=== PATIENT | female | born 1975 | race Caucasian/White ===

== ENCOUNTER → 2019-01-09 | Outpatient (CLI) | payer BC ==
[~2019-01-09] MED LIST: LEVO75TA PO; OMEG-76 PO; vitamin d PO
[2019-01-09 20:13] LABS: BASOPHILS # (AUTO) 0.03 x10^3/uL (0-0.1); BASOPHILS % (AUTO) 1 % (0-1); EOSINOPHILS # (AUTO) 0.24 x10^3/uL (0-0.4); EOSINOPHILS % (AUTO) 4 % (1-7); LYMPHOCYTES # (AUTO) 1.76 x10^3/uL (1-3.4); LYMPHOCYTES % (AUTO) 28 % (22-44); MD NO; MEAN CORPUSCULAR HEMOGLOBIN 30.1 pg (27.0-34.8); MEAN CORPUSCULAR HGB CONC 33.8 g/dL (32.4-35.8); MEAN CORPUSCULAR VOLUME 89.1 fL (80-100); MEAN PLATELET VOLUME 8.1 fL (7.4-10.4); MONOCYTES # (AUTO) 0.41 x10^3/uL (0.2-0.8); MONOCYTES % (AUTO) 6 % (2-9); NEUTROPHILS # (AUTO) 3.91 x10^3/uL (1.8-6.8); NEUTROPHILS % (AUTO) 62 % (42-75); PLATELET COUNT 334 x10^3/uL (130-400); RED BLOOD COUNT 4.88 x10^6/uL (3.82-5.3); RED CELL DISTRIBUTION WIDTH 13.5 % (9.6-15.2)
== END | disposition home or self-care (01) ==
LOC: STAR 10:54
PROVIDERS: ATTEND Obstetrics & Gynecology Female Pelvic Medicine and Reconstructive Surgery
DX: D25.9 Leiomyoma of uterus, unspecified (principal); N93.9 Abnormal uterine and vaginal bleeding, unspecified; N92.0 Excessive and frequent menstruation with regular cycle
CPT/HCPCS: 36415; 84703; 85025

== ENCOUNTER 2019-01-19 09:34 | Day surgery (SDC) | payer BC ==
[~2019-01-19] VITALS: Ht 162.6 cm; Wt 83.5 kg
[2019-01-19] MEDS ORDERED: LACTATED RINGERS 1,000 ML IV SCH ×2 (10:04→15:13)
[2019-01-19] MEDS ORDERED: INDIGO CARMINE 0.8%, 5ML ONE (10:10)
[2019-01-19] MEDS ORDERED: EPINEPHRINE 1 MG/ML, 1ML ONE (10:10)
[2019-01-19] MEDS ORDERED: BUPIVACAINE/PF 0.25% ONE (10:10)
[2019-01-19] MEDS ORDERED: THROMBIN 5,000 UNIT VIAL TP ONE (10:20)
[2019-01-19] MEDS ORDERED: GABAPENTIN 300 MG CAPSULE PO ONE (10:30)
[2019-01-19] MEDS ORDERED: PLEASE ENTER ALLERGIES MC SCH (10:30)
[2019-01-19] MEDS ORDERED: ACETAMINOPHEN 500 MG TABLET PO ONE (10:30)
[2019-01-19 10:31] VITALS: BP 126/85
[2019-01-19 10:34] LABS: HCG UR SG 1.007 (1.003-1.030)
[2019-01-19] MEDS ORDERED: PROPOFOL 10 MG/ML, 20ML ONE (11:34)
[2019-01-19] MEDS ORDERED: ONDANSETRON 2MG/ML, 2ML ONE (11:34)
[2019-01-19] MEDS ORDERED: DEXAMETHASONE 4 MG/ML, 1ML ONE (11:34)
[2019-01-19] MEDS ORDERED: MIDAZOLAM 1 MG/ML, 5ML ONE (11:34)
[2019-01-19] MEDS ORDERED: GLYCOPYRROLATE 0.2MG/1ML, 5ML ONE (11:34)
[2019-01-19] MEDS ORDERED: NEOSTIGMINE 1 MG/ML, 10ML ONE (11:34)
[2019-01-19] MEDS ORDERED: ROCURONIUM 10 MG/ML,10ML ONE (11:34)
[2019-01-19] MEDS ORDERED: KETOROLAC 30 MG/1 ML ONE (11:34)
[2019-01-19] MEDS ORDERED: FENTANYL PF 250 MCG/5ML ONE (11:34)
[2019-01-19] MEDS ORDERED: MEPERIDINE/PF 25MG/0.5ML IVPush PRN (12:00)
[2019-01-19] MEDS ORDERED: hydrALAzine 20 MG/ML, 1ML IV PRN (12:00)
[2019-01-19] MEDS ORDERED: LABETALOL 5 MG/ML SYRINGE IV PRN (12:00)
[2019-01-19] MEDS ORDERED: PROMETHAZINE 25 MG/ML, 1ML IM PRN ×2 (12:00)
[2019-01-19] MEDS ORDERED: PROMETHAZINE 12.5 MG SUPP PR PRN (12:00)
[2019-01-19] MEDS ORDERED: PROMETHAZINE 25 MG/ML, 1ML IV PRN (12:00)
[2019-01-19] MEDS ORDERED: PROMETHAZINE 25 MG SUPP PR PRN (12:00)
[2019-01-19] MEDS ORDERED: HALOPERIDOL 5 MG/ML IV PRN (12:00)
[2019-01-19] MEDS ORDERED: OXYcodone 5 MG/5 ML ORAL.SOL UDC PO PRN ×3 (12:00→15:30)
[2019-01-19] MEDS ORDERED: ONDANSETRON 2MG/ML, 2ML IV PRN (12:00)
[2019-01-19] MEDS ORDERED: ONDANSETRON ODT 8 MG PO PRN (12:00)
[2019-01-19] MEDS ORDERED: HYDROmorphone 2 MG/ML, 1ML IVPush PRN (12:00)
[2019-01-19] MEDS ORDERED: FENTANYL PF 100 MCG/2ML ONE (14:52)
[2019-01-19] MEDS: FENTANYL PF 100 MCG/2ML IV PRN ×3 (14:54→15:24)
[2019-01-19] MEDS ORDERED: OXYcodone 5 MG/5 ML ORAL.SOL UDC ONE (15:09)
[2019-01-19] MEDS ORDERED: ONDANSETRON 2MG/ML, 2ML IVPush PRN (15:30)
[2019-01-19] MEDS ORDERED: IBUPROFEN 600 MG TABLET PO PRN (15:30)
[2019-01-19] MEDS ORDERED: PROMETHAZINE 25 MG SUPP PR ONE (15:30)
== END 2019-01-19 18:07 | disposition home or self-care (01) ==
LOC: OUT 09:34
PROVIDERS: ATTEND Obstetrics & Gynecology Female Pelvic Medicine and Reconstructive Surgery
DX: D25.0 Submucous leiomyoma of uterus (principal); D27.1 Benign neoplasm of left ovary; N83.8 Other noninflammatory disorders of ovary, fallopian tube and broad ligament; N92.0 Excessive and frequent menstruation with regular cycle; E03.9 Hypothyroidism, unspecified; Z88.6 Allergy status to analgesic agent; Z88.8 Allergy status to other drugs, medicaments and biological substances
CPT/HCPCS: 58554; 81025; 88305; 88307; J0171; J0690; J1100; J1885; J2250; J2405; J2704; J2710; J3010; J3490; J7120